=== PATIENT | female | born 1955 ===

== ENCOUNTER 2020-12-23 17:31 | Outpatient (REF) | payer MEDICARE, SELFPAY ==
[2020-12-23 18:16] LABS: COVID-19 Test Negative (Negative)
== END 2020-12-23 17:32 | disposition home or self-care (01) ==
LOC: HO.LAB 17:31
PROVIDERS: Visit Provider Internal Medicine
DX: Z20.822 Contact with and (suspected) exposure to COVID-19 (principal)
CPT/HCPCS: 36415; 87635